=== PATIENT | male | born 1960 | race Caucasian/White ===

== ENCOUNTER → 2019-07-31 | Outpatient (CLI) | payer MEDICARE, OTHER ==
[2019-07-30 18:10] VITALS: BP 128/85
[~2019-07-31] MED LIST: AMIT75TA; CYCL7.5T PO; DEXL60CA2; HYDR-2763 PO; HYDR25LI; LISI-334; LISI1TAB20 PO; OMEP20CA16; SIMV40TA18; SUCR1TAB35
== END | disposition home or self-care (01) ==
LOC: LAB 12:56
PROVIDERS: ATTEND Family Medicine
DX: R78.81 Bacteremia (principal)
CPT/HCPCS: 36415; 87040